=== PATIENT | female | born 1990 | race African-American/Black ===

== ENCOUNTER 2016-08-03 13:14 | Emergency (ER) | payer MEDICAID ==
[~2016-08-03] VITALS: Ht 167.6 cm; Wt 59.0 kg
[2016-08-03 13:31] VITALS: BP 115/69
== END 2016-08-03 18:00 | disposition home or self-care (01) ==
LOC: ER 17:35
DX: K04.7 Periapical abscess without sinus (principal)
CPT/HCPCS: 99283

== ENCOUNTER 2016-11-16 17:35 | Emergency (ER) | payer MEDICAID ==
[~2016-11-16] VITALS: Ht 167.6 cm; Wt 59.0 kg
[2016-11-16 18:19] VITALS: BP 118/81
== END 2016-11-17 00:24 | disposition left against medical advice (07) ==
LOC: ER 17:35
DX: Z53.21 Procedure and treatment not carried out due to patient leaving prior to being seen by health care provider (principal)